=== PATIENT | female | born 1955 ===

== ENCOUNTER → 2016-03-02 | Day surgery (SDC) | payer MEDICARE, MEDICAID ==
--- NOTE | 2016-03-01 22:15 | Pre-Procedure Note/Attestation ---
Pre-Procedure Note/Attestation Complete Prior to Procedure Planned Procedure: left - Removal of cataract and placement of intraocular lens , left eye Indications for Procedure Pre-Operative Diagnosis: cataract, nuclear, left eye Attestation I attest that I discussed the nature of the procedure; its benefits; risks and complications; and alternatives (and the risks and benefits of such alternatives ), prior to the procedure, with the patient (or the patient's legal call center support representative). I attest that, if there was a reasonable possibility of needing a blood transfusion, the patient (or the patient's legal call center support representative) was given the [facility] standardized written summary, pursuant to the [place] Blood Safety Act ([place] Health and Safety Code # 1645, as amended). I attest that I re-evaluated the patient just prior to the surgery and that there has been no change in the patient's H&P, except as documented below: Manuel Bright MD Mar 01, 2016 22:15
[~2016-03-02] VITALS: Ht 157.5 cm; Wt 89.8 kg
[2016-03-02] VITALS (10 sets, daily range): BP systolic 144–192; BP diastolic 77–96
[~2016-03-02] MED LIST: AMLODIPINE BESY10 MG PO; ASPIR-LOW81 MG PO; ASPIRIN EC81 MG ORAL; Akten 3.5% 1ml Btl ONE; BENAZEPRIL HCL40 MG ORAL; BSS 15ml BTL ONE; BSS 500ml btl ONE; CALCIUM ACETAT667 M1 PO; CATAPRES0.1 MG ORAL; CLEOCIN150 MG ORAL; COZAAR25 MG PO; Carbachol 0.01% Op Soln 1.5ml vial ONE; Cyclopentolate 1% Opth Sol ONE; DIOVAN320 MG ORAL; DOCUSATE SODIU100 MG ORAL; Dexamethasone 4mg/ml vial ONE; DiphenhydrAMINE 50mg/ml Inj IVP PRN; EC-NAPROSYN500 MG PO; EPINEPHrine 1mg/1ml Amp ONE; Fluorescein Strips ONE; Flurbiprofen 0.03% Opth Sol 2.5ml ONE; Gatifloxacin Opth Solution 0.5% ONE; HUMALOG 75/255 UNITS SUBQ; HUMULIN R100 UNIT/1 SUBQ; HUMULIN SUBQ; INSULIN ISOPHANE; KEFLEX500 MG ORAL; LABETALOL HCL300 MG PO; LACTULOSE20 GM/301 ORAL; LASIX80 MG PO; LEVOTHYROXINE125 MCG ORAL; LEVOTHYROXINE137 MCG ORAL; LEVOTHYROXINE150 MCG ORAL; LEVOTHYROXINE50 MCG ORAL; LINZESS145 MCG PO; LIPITOR80 MG PO; LR 1000ml 1,000 ML IVLG SCH; Lidocaine 1% MPF 10mg/ml 5ml ONE; Lidocaine 4% Amp ONE; MOTRIN100 M2 PO; Maxitrol Opth Oint 3.5gm ONE; Midazolam 2mg/2ml Inj ONE; NKM; NORCO 5-325 TA1 EACH ORAL; NORVASC10 MG ORAL; NS 110ml ONE; OMEPRAZOLE20 M2 ORAL; OMEPRAZOLE20 M3 PO; OYSTER SHELL C500 MG PO; Phenylephrine 10% Opth Soln 5ml ONE; Povidone-Iodine 5% opth solution ONE; Pred Forte 1% Opth Susp 1ml LEFT EYE ONE; Pred Forte 1% Opth Susp 1ml ONE; Propofol 10mg/ml 20ml IV ONE; RANITIDINE HCL300 MG ORAL; SYNTHROID150 MCG PO; Sodium Hyaluronate 10 mg/ml 0.85ml ONE; Tetracaine 0.5% Opth Soln ONE; VIT B 12 PO; VITAMIN D-40400 UNIT ORAL; fentaNYL 100 mcg/2 mL IV ONE; fentaNYL 100 mcg/2 mL IV PRN
[2016-03-02] MEDS: Cyclopentolate 1% Opth Sol LEFT EYE SCH ×3 (06:09→06:41)
[2016-03-02] MEDS: Phenylephrine 10% Opth Soln 5ml LEFT EYE SCH ×3 (06:09→06:41)
[2016-03-02] MEDS: Akten 3.5% 1ml Btl LEFT EYE SCH ×3 (06:09→06:41)
[2016-03-02] MEDS: Flurbiprofen 0.03% Opth Sol 2.5ml LEFT EYE SCH ×3 (06:10→06:41)
[2016-03-02] MEDS: Gatifloxacin Opth Solution 0.5% LEFT EYE SCH ×3 (06:10→06:42)
--- NOTE | 2016-03-02 08:07 | Anethesia Preoperative Eval ---
Anesthesia Pre-op PMH/ROS General Date of Evaluation: Mar 02, 2016 Time of Evaluation: 07:25 Anesthesiologist: Larisa ASA Score: ASA 3 Mallampati Score Class I : Soft palate, uvula, fauces, pillars visible Class II: Soft palate, uvula, fauces visible Class III: Soft palate, base of uvula visible Class IV: Only hard plate visible Mallampati Classification: Class III Surgeon: Kaila Diagnosis: L eye cataract Surgical Procedure: L eye cataract extraction Anesthesia History: none Family History: no anesthesia problems Allergies: Coded Allergies: No Known Allergies (Unverified , 09/28/11) Medications: see eMAR Past Medical History Cardiovascular: Reports: HTN, Denies: CAD, UT, arrhythmia, other, valve dz Pulmonary: Reports: CALEB, Denies: COPD, asthma, other Gastrointestinal/Genitourinary: Reports: ESRD - on HD last session 03/01/16, GERD, Denies: CRI, other Neurologic/Psychiatric: Denies: CVA, TIA, dementia, depression/anxiety, other Endocrine: Reports: DM - on pills stable, hypothyroidism, Denies: other, steroids HEENT: Reports: cataract (L), cataract (R), other - retinopathy Hematology/Immune: Reports: anemia - of chronic d-s, Denies: DVT, bleeding disorder, other Musculoskeletal/Integumentary: Reports: DJD, Denies: DDD, OA, RA, edema, other Other: obesity - morbid obesity PMH Narrative: as above PSxH Narrative: R eye cataract,retinal Sx L arm A-V shunt placement Anesthesia Pre-op Phys. Exam Physician Exam Last Vital Signs Date Time Temp Pulse Resp B/P Pulse Ox O2 Delivery O2 Flow Rate FiO2 03/02/16 06:35 98.1 86 20 144/92 97 Room Air Constitutional: NAD Neurologic: CN 2-12 intact Cardiovascular: RRR, no M/R/G Respiratory: CTA Gastrointestinal: other - obesity Airway Exam Mallampati Score: Class III MO: full Neck: short ROM: limited Teeth: missing Dentures: no lower, no upper Anesthesia Pre-op A/P Labs Chemistry Test 03/02/16 05:36 Potassium Level 4.2 mEQ/L (3.4-4.9) Studies Pre-op Studies: EKG - SR Risk Assessment & Plan Assessment: ASA 3 Plan: MAC Pre-Antibiotics Drug: none ANISH HUERTA M.D. Mar 02, 2016 08:07
--- NOTE | 2016-03-02 08:42 | Discharge Instructions ---
Discharge Instructions Discharge Instructions Follow Up Orders Keep shield on at all times Continue pre op eye drops Followup tomorrow in Dr Bright's office For Congestive Heart Failure Reminder Report to your physician any weight gain of 5 pounds or more in one week. Manuel Bright MD Mar 02, 2016 08:42
--- NOTE | 2016-03-02 08:44 | Brief Operative Note ---
Immediate Post Operative Note Operative Note Pre-op Diagnosis: cataract, nuclear, left eye Procedure: Phaco pc iol, os Post-op Diagnosis: Cataract, nuclear, posterior subcapsular, left eye Surgeon: Ron Jacobs MD MS Waste Cotton Cleaner: none Anesthesiologist: Dr Peres Anesthesia: local, MAC Specimen: none Complications: none Condition: stable Estimated Blood Loss: minimal Drains: none Implant(s) used?: Yes - miranda [id number] 25.0 Manuel Jacobs MD Mar 02, 2016 08:44
--- NOTE | 2016-03-02 09:58 | Immediate Post-Op Evaluation ---
Immediate Post-Op Evalulation Immediate Post-Op Evalulation Procedure: L eye cataract extraction woth IOL Date of Evaluation: Mar 02, 2016 Time of Evaluation: 08:45 IV Fluids: 300 Blood Products: none Estimated Blood Loss: none Urinary Output: none Blood Pressure Systolic: 174 Blood Pressure Diastolic: 89 Pulse Rate: 76 Respiratory Rate: 20 O2 Sat by Pulse Oximetry: 99 Temperature (Fahrenheit): 98.1 Pain Score (1-10): 1 Nausea: No Vomiting: No Complications none Patient Status: awake, patent, none Hydration Status: adequate ANISH HUERTA M.D. Mar 02, 2016 09:58
--- NOTE | 2016-03-02 10:29 | 48 Hour Post Anesthesia Eval ---
Post Anesthesia Evaluation Procedure: L eye cataract extraction woth IOL Date of Evaluation: Mar 02, 2016 Time of Evaluation: 10:28 Blood Pressure Systolic: 172 0: 86 Pulse Rate: 76 Respiratory Rate: 20 Temperature (Fahrenheit): 97.6 O2 Sat by Pulse Oximetry: 99 Airway: patent Nausea: No Vomiting: No Pain Intensity: 2 Hydration Status: adequate Cardiopulmonary Status: stable Mental Status/LOC: patient returned to baseline Follow-up Care/Observations: n/a Post-Anesthesia Complications: none Follow-up care needed: ready to discharge ANISH HUERTA M.D. Mar 02, 2016 10:29
--- NOTE | 2016-03-03 19:47 | Operative Note - Dictated ---
DATE OF OPERATION: 03/02/2016 SURGEON: Manuel Bright M.D. SURGICAL TECHNOLOGY INSTRUCTOR SURGEON: None. ANESTHESIOLOGIST: Geremias Peres M.D. ANESTHESIA: Local/standby/monitored anesthesia care. PREOPERATIVE DIAGNOSIS: Cataract, nuclear, posterior subcapsular cataract, left eye. POSTOPERATIVE DIAGNOSIS: Cataract, nuclear, posterior subcapsular cataract, left eye. PROCEDURES: 1. Phacoemulsification of cataract, left eye. 2. Placement of posterior chamber intraocular lens, left eye (model [id number], power 25.0). SPECIMENS: None. COMPLICATIONS: None. INDICATIONS FOR SURGERY: The patient has had the painless progressive decrease in visual acuity in the left eye secondary to the cataract. In addition, the patient is being seen by a retina specialist for diabetic retinopathy. The patient understands the risks of surgery including infection, bleeding, need for further surgery, loss of vision, no improvement in vision, loss of the eye, loss of life, glaucoma, retinal detachment, understands these risks, and elects to proceed with surgery. FINDINGS: The patient had a +2 nuclear sclerotic cataract as well as a +2 posterior subcapsular cataract. Operative Note: After informed consent was obtained, the patient was brought into the operating room and placed in the supine position. Cardiac and respiratory monitors were attached. A time-out was performed and all criteria were met and everyone in the room agreed. The left eye was then draped and prepped in a sterile manner for ocular surgery. A lid speculum was placed in the eye. At this point, the patient was almost yelling in pain. At this point, the patient was having pain and some intravenous sedation was given and the patient was very comfortable. After the lid speculum was placed in the eye, 1% lidocaine preservative-free was injected at the 2 o'clock area. A conjunctival peritomy from approximately 1:30 to 3 o'clock was made and dissected posteriorly. The paracentesis was made at approximately 5 o'clock and Shugarcaine was injected into the anterior chamber followed by Koko. The anterior chamber was then entered using a 2.6 mm keratome through the limbal incision. A lid speculum was placed in the eye. A 1% lidocaine preservative-free was injected at the approximate 2 o'clock limbus. A conjunctival peritomy from approximately 1:30 to 3 o'clock was made and dissected posteriorly. The paracentesis was made at approximately 5 o'clock and Shugarcaine was injected into the anterior chamber followed by Healon. Hemostasis was maintained with bipolar cautery. A 2.6 mm limbal incision was made centered at approximately 2 o'clock and dissected anteriorly. The anterior chamber was entered using a 2.6 mm keratome. Anterior capsulorrhexis was then performed. Hydrodissection and hydrodelineation of the lens was then performed. The lens was then phacoemulsified using divide and conquer four-quadrant technique. Residual cortical material was then aspirated. Healon was injected into the anterior chamber and capsular bag and the lens was taken from its package, placed into the cartridge and the tip of the cartridge was placed through the limbal incision. The lens was injected into the capsular bag and centered nicely with a Sinskey hook. Healon was then aspirated from the anterior chamber and capsular bag. One 10-0 nylon interrupted suture was then placed through the limbal incision and the knot was rotated and buried. Care was taken during the entire procedure not to touch the endothelium. The wounds were checked and found to be watertight. The paracentesis site had been previously hydrated and closed. The conjunctiva was then closed with forceps cautery. The lid speculum and drapes were removed from the eye and the drops of Betadine was placed on the ocular surface and then irrigated and this was followed by Pred Forte eye drops, Zymaxid drops, Maxitrol ointment, and then a shield. The patient tolerated the procedure well and left the operating room awake and alert in stable condition. Note, the patient needed to have intravenous sedation during the case and frequent time since she awoke from the IV sedation she would note that she was having some discomfort. Manuel Bright M.D. DR: Marti JOB#: [id number] CC:
== END | disposition home or self-care (01) ==
LOC: SUR 05:08
DX: H25.12 Age-related nuclear cataract, left eye (principal); H25.032 Anterior subcapsular polar age-related cataract, left eye; E11.319 Type 2 diabetes mellitus with unspecified diabetic retinopathy without macular edema; E11.22 Type 2 diabetes mellitus with diabetic chronic kidney disease; I12.0 Hypertensive chronic kidney disease with stage 5 chronic kidney disease or end stage renal disease; N18.6 End stage renal disease; Z99.2 Dependence on renal dialysis; Z79.84 Long term (current) use of oral hypoglycemic drugs; B18.2 Chronic viral hepatitis C; E78.00 Pure hypercholesterolemia, unspecified; G47.33 Obstructive sleep apnea (adult) (pediatric); E03.9 Hypothyroidism, unspecified; K21.9 Gastro-esophageal reflux disease without esophagitis; D64.9 Anemia, unspecified; M19.90 Unspecified osteoarthritis, unspecified site; E66.01 Morbid (severe) obesity due to excess calories
CPT/HCPCS: 36415; 66984; 82962; 84132; J0171; J1100; J2250; J2704; J3010; V2632; 94003; 94150

== ENCOUNTER 2016-03-20 02:59 | Emergency (ER) | payer MEDICARE, MEDICAID ==
[~2016-03-20] VITALS: Ht 157.5 cm; Wt 88.5 kg
[~2016-03-20 02:59] MED LIST changes: -Akten 3.5% 1ml Btl ONE; -BSS 15ml BTL ONE; -BSS 500ml btl ONE; -CLEOCIN150 MG ORAL; -Carbachol 0.01% Op Soln 1.5ml vial ONE; -Cyclopentolate 1% Opth Sol ONE; -Dexamethasone 4mg/ml vial ONE; -DiphenhydrAMINE 50mg/ml Inj IVP PRN; -EPINEPHrine 1mg/1ml Amp ONE; -Fluorescein Strips ONE; -Flurbiprofen 0.03% Opth Sol 2.5ml ONE; -Gatifloxacin Opth Solution 0.5% ONE; -LACTULOSE20 GM/301 ORAL; -LR 1000ml 1,000 ML IVLG SCH; -Lidocaine 1% MPF 10mg/ml 5ml ONE; -Lidocaine 4% Amp ONE; -Maxitrol Opth Oint 3.5gm ONE; -Midazolam 2mg/2ml Inj ONE; -NS 110ml ONE; -Phenylephrine 10% Opth Soln 5ml ONE; -Povidone-Iodine 5% opth solution ONE; -Pred Forte 1% Opth Susp 1ml LEFT EYE ONE; -Pred Forte 1% Opth Susp 1ml ONE; -Propofol 10mg/ml 20ml IV ONE; -Sodium Hyaluronate 10 mg/ml 0.85ml ONE; -Tetracaine 0.5% Opth Soln ONE; -VIT B 12 PO; -fentaNYL 100 mcg/2 mL IV ONE; -fentaNYL 100 mcg/2 mL IV PRN
[2016-03-20] MEDS ORDERED: LEVOTHYROXINE150 MCG ORAL (03:36)
[2016-03-20] MEDS ORDERED: CLEOCIN150 MG ORAL (03:40)
[2016-03-20] MEDS ORDERED: VIT B 12 PO (03:40)
[2016-03-20 03:41] VITALS: BP 155/62
[2016-03-20] MEDS ORDERED: Morphine Sulfate 4mg/ml Inj IVP ONE ×2 (03:45→04:15)
[2016-03-20 03:47] LABS: BASOPHILS % (AUTO) 1.3 % (0.0-2.0); EOSINOPHILS % (AUTO) 0.9 % (0.0-3.0); LYMPHOCYTES % (AUTO) 30.6 % (20.0-45.0); MEAN CORPUSCULAR HEMOGLOBIN 33.7 PG (27.0-31.0); MEAN CORPUSCULAR HGB CONC 30.9 G/DL (32.0-36.0); MEAN CORPUSCULAR VOLUME 109 FL (80-99); MEAN PLATELET VOLUME 9.1 FL (6.5-10.1); MONOCYTES % (AUTO) 9.1 % (1.0-10.0); PLATELET COUNT 242 K/UL (150-450); RED BLOOD COUNT 4.13 M/UL (4.20-5.40); RED CELL DISTRIBUTION WIDTH 15.9 % (11.6-14.8); WHITE BLOOD COUNT 7.7 K/UL (4.8-10.8)
[2016-03-20 04:00] VITALS: BP 148/68
[2016-03-20 04:01] LABS: CALCIUM 8.9 mg/dL (8.6-10.2); CREATININE 7.8 mg/dL (0.5-0.9); GLOMERULAR FILTRATION RATE 5.3 mL/min (>60); POTASSIUM 5.9 mEQ/L (3.4-4.9); TOTAL PROTEIN 6.8 g/dL (6.6-8.7)
[2016-03-20] MEDS ORDERED: Sodium Polystyrene Sulfonate 15gm Powder ORAL ONE (04:15)
[2016-03-20] MEDS ORDERED: HYDROmorphone 1mg/ml Carpuject IVP ONE (05:00)
--- NOTE | 2016-03-20 05:01 | Emergency Room Report ---
History of Present Illness General Chief Complaint: Abdominal Pain Source: Patient, Family Member, Medical Record, EMS Present Illness HPI This is a 61-year-old female with a history renal failure hemodialysis Sunday, Sunday and Sunday. She presents with chief complaint of severe abdominal pain. Onset for last few days. She has nausea and vomiting and constipation. She did not go to dialysis at 4 AM today because of the abdominal pain. No other complaint. Pain is severe 10 out of 10. She had this pain before and workup has been unremarkable. Allergies: Coded Allergies: No Known Allergies (Unverified , 09/28/11) Patient History Past Medical History: see triage record, old chart reviewed, HTN, dialysis Past Surgical History: other Pertinent Family History: none Social History: Denies: smoking Now: No Immunizations: other Reviewed Nursing Documentation: PMH: Agreed, PSxH: Agreed Nursing Documentation-PMH Hx Cardiac Problems: Yes Hx Hypertension: Yes Hx Diabetes: Yes Hx Cancer: No Hx Gastrointestinal Problems: Yes - GASTRIC BYPASS Hx Dialysis: Yes - M/W/F [facility] (LAST 02/08/15) Hx Neurological Problems: No Hx Dizziness: Yes Review of Systems Eye: Denies: blurred vision, eye pain ENT: Denies: ear pain, nose congestion, throat swelling Respiratory: Denies: cough, shortness of breath Cardiovascular: Denies: chest pain, palpitations Gastrointestinal: Reports: abdominal pain, nausea, vomiting, Denies: diarrhea Musculoskeletal: Denies: back pain, joint pain Skin: Denies: rash Neurological: Denies: headache, numbness Endocrine: Denies: increased thirst, increased urine Hematologic/Lymphatic: Denies: easy bruising All Other Systems: negative except mentioned in HPI Physical Exam Vital Signs Date Time Temp Pulse Resp B/P Pulse Ox O2 Delivery O2 Flow Rate FiO2 03/20/16 03:04 97.5 97 18 133/90 98 Room Air vitals unremarkable Sp02 EP Interpretation: reviewed, normal General Appearance: well appearing, no apparent distress, alert, obese Head: normocephalic, atraumatic Eyes: bilateral eye EOMI, bilateral eye PERRL ENT: hearing grossly normal, normal pharynx Neck: full range of motion, supple, no meningismus Respiratory: chest non-tender, lungs clear, normal breath sounds Cardiovascular #1: regular rate, rhythm, no murmur Gastrointestinal: normal bowel sounds, no mass, no organomegaly, no bruit, non- distended, tenderness - Diffuse Musculoskeletal: back normal, normal range of motion Neurologic: alert, oriented x3 Psychiatric: mood/affect normal Skin: warm/dry Medical Decision Making Diagnostic Impression: Primary Impression: Abdominal pain Qualified Codes: R10.84 - Generalized abdominal pain Additional Impressions: Constipation Qualified Codes: K59.00 - Constipation, unspecified Acute hyperkalemia Obesity (BMI 30-39.9) ER Course Patient presents with abdominal pain. CT scan unremarkable. She had previous workup is also unremarkable. She is hyperkalemic without EKG changes. I gave her a dose of Kayexalate here. I called the dialysis center and confirm that she has appointment there. They can fit her in if we can get her there around 6 :00. It unable, will admit to Dr. Lomeli. Her said that he will drive her to dialysis. Doesn't want to wait for ambulance. Lab Results Impression labs with hyperkalemia EKG Diagnostic Results Rate: normal Rhythm: NSR ST Segments: no acute changes Rhythm Strip Diag. Results EP Interpretation: yes Rate: 85 Rhythm: NSR, no PVC's, no ectopy Chest X-Ray Diagnostic Results EP Interpretation: Yes Findings: no consolidation, no effusion, no pneumothorax, no acute cardiopulmonary disease Number of Views: 1 CT/MRI/US Diagnostic Results CT/MRI/US Diagnostic Results : Imaging Test Ordered: CT abd/pelvis Impression Read by radiologist. No obstruction. Last Vital Signs Date Time Temp Pulse Resp B/P Pulse Ox O2 Delivery O2 Flow Rate FiO2 03/20/16 04:05 97.5 03/20/16 03:41 90 27 155/62 100 Room Air Status: improved Disposition: HOME, SELF-CARE Condition: Stable Scripts Lactulose (LACTULOSE*) 20 Gm/30 Ml Solution 30 ML ORAL DAILY, #240 ML 0 Refills Prov: PALOMO PERALTA M.D. 03/20/16 Patient Instructions: Abdominal Pain, Adult Additional Instructions: Go directly to dialysis. Follow up with your doctor in 2-3 days. Return if worse. PALOMO PERALTA M.D. Mar 20, 2016 05:01
[2016-03-20] MEDS ORDERED: LACTULOSE20 GM/301 ORAL (05:20)
[2016-03-20 05:27] VITALS: BP 155/62
[2016-03-20 05:30] VITALS: BP 130/52
[2016-03-20 05:33] VITALS: BP 130/52
--- NOTE | 2016-03-20 10:43 | Diagnostic Imaging Report ---
Indication: Abdominal Technique: Spiral acquisitions obtained through the abdomen and pelvis. No oral contrast utilized, per emergency room physician request No IV contrast utilized, per referring physician request.. Multiplanar reconstructions were generated. Total dose length product 947 mGycm. CTDIvol(s) 18 mGy Comparison: 07/13/2014 Findings: Lack of oral contrast limits assessment of the GI tract. There is some infiltration of the omental fat in the right upper quadrant. There is evidence of interim gastric surgery with evidence of gastrojejunal and jejunojejunal anastomosis. Focal areas of infiltration of the subcutaneous fat are consistent with laparoscopy ports. Normal appendix.. Equivocal small colonic diverticula No evidence of diverticulitis. No small bowel distention. No free or loculated intraperitoneal air or fluid. There is a tiny fat-containing umbilical hernia again demonstrated. No free or loculated intraperitoneal air or fluid. Lack of IV contrast limits assessment of the solid organs. There is interim development of diffuse hepatic low attenuation, consistent with fatty change. Again demonstrated are cholecystectomy clips. No biliary ductal dilatation. The pancreas is somewhat atrophic. The spleen, adrenals are unremarkable. The kidneys are atrophic. No mesenteric or retroperitoneal mass or adenopathy. The uterus demonstrates arcuate artery calcifications, is otherwise unremarkable. There are bilateral buttock injection granulomata. The included lung bases are clear.. There are compression fractures of the T10 and T12 vertebral bodies again demonstrated. Impression: Since 07/13/2014, evidence of interim laparoscopic gastric surgery with gastrojejunostomy and jejunojejunal anastomosis. Infiltration of the right upper quadrant omental fat. Suspect related to the above, but could represent an acute inflammation such as epiploic appendicitis No other definite acute abnormality Equivocal diverticulosis Fatty liver, new since 07/13/2014 Bilateral renal atrophy, suspect chronic medical renal disease T10-12 vertebral body compression fracture deformities, also evident previously Fat-containing umbilical hernia again demonstrated. Uterine arcuate artery calcifications This agrees with the preliminary interpretation provided overnight by [facility] teleradiology service. The CT scanner at [facility] is accredited by the [employer] and the scans are performed using protocols designed to limit radiation exposure to as low as reasonably achievable to attain images of sufficient resolution adequate for diagnostic evaluation.
--- NOTE | 2016-03-21 12:56 | Cardiology Report ---
APPROVED REPORT EKG Measurement Heart [id number] Normal sinus rhythm Low voltage QRS Borderline ECG
--- NOTE | 2016-03-21 12:56 | Diagnostic Imaging Report ---
Indication: SOB Technique: One view of the chest Comparison: 05/27/2012 Findings: Interim removal of previously demonstrated dialysis catheter. The heart is enlarged. The lungs are clear. There is mild blunting of the right costophrenic angle, not evident previously Impression: Right costophrenic angle blunting, probably artifactual as no pleural fluid is seen on the CT scan performed one half hour earlier Cardiomegaly
== END 2016-03-20 05:35 | disposition home or self-care (01) ==
LOC: EMR 03:48 → CANBEDREQ 04:54 → EMR 05:35
DX: R10.84 Generalized abdominal pain (principal); K59.00 Constipation, unspecified; E87.5 Hyperkalemia; E66.9 Obesity, unspecified; Z68.30 Body mass index [BMI] 30.0-30.9, adult; N19 Unspecified kidney failure; Z99.2 Dependence on renal dialysis; R11.2 Nausea with vomiting, unspecified; I10 Essential (primary) hypertension; E11.9 Type 2 diabetes mellitus without complications; Z87.19 Personal history of other diseases of the digestive system
CPT/HCPCS: 36415; 71010; 74176; 80053; 83690; 85025; 93005; 96374; 96375; 99284; J1170; J2270; J2405